=== PATIENT | female | born 1995 | race Caucasian/White ===

== ENCOUNTER → 2017-12-20 | Outpatient (REF) | payer OTHER | LOC: M SFHCLERA 11:26 | DX: J02.9 Acute pharyngitis, unspecified (principal) ==

== ENCOUNTER → 2017-12-27 | Outpatient (REF) | payer OTHER | LOC: M LAB REF 18:32 | DX: Z01.419 Encounter for gynecological examination (general) (routine) without abnormal findings (principal); Z12.4 Encounter for screening for malignant neoplasm of cervix ==

== ENCOUNTER → 2018-03-05 | Outpatient (REF) | payer OTHER | LOC: M SFHCLERA 13:32 | PROVIDERS: ATTEND Physician Assistant | DX: N39.0 Urinary tract infection, site not specified (principal) ==

== ENCOUNTER 2018-04-27 00:47 | Emergency (ER) | payer OTHER ==
[~2018-04-27] VITALS: Ht 165.1 cm; Wt 56.8 kg
[2018-04-27 00:47] VITALS: BP 154/97
== END 2018-04-27 02:29 | disposition left against medical advice (07) ==
LOC: M ED 00:47
DX: Z53.29 Procedure and treatment not carried out because of patient's decision for other reasons (principal)

== ENCOUNTER → 2018-08-21 | Outpatient (CLI) | payer OTHER ==
--- NOTE | 2018-08-22 02:54 | REP ---
Clinical: Anatomical evaluation. Comparison: None . Findings: Examination demonstrates a single live intrauterine in breech presentation. motion is identified by technologist. Placenta is noted anterior and grade zero without evidence for placenta previa or abruption. Amniotic fluid volume is normal. Cervix measures 3.9 cm in length and appears closed. No evidence for nuchal cord. Gestational age by LMP 19 weeks 2 days with RAE 01/13/2019 . Gestational age by current measurements 19 weeks 2-day with RAE 01/13/2019 . FHR equals 139 beats per minute. BPD 4.0 cm 18 weeks 1 day HC 16.4 cm 19 weeks 1 day AC 15.2 cm 20 weeks 3 days FL 2.9 cm 19 weeks 0 days HL 2.9 cm 19 weeks 3 days HC/AC ratio 1.08 Estimated weight 303 grams ( the 58 percentile). Anatomical assessment demonstrates normal structures including cranium, choroid plexus, cavum, cerebellum/posterior fossa, facial features, diaphragm, stomach, cord insertion/three-vessel cord, kidneys/bladder, spine, and extremities. Limited evaluation of the lungs and heart/ventricular outflow tracts. Impression: Single live intrauterine in breech presentation demonstrating appropriate interval growth. Anatomical limitations as described above may warrant reevaluation and follow-up. Electronically Signed by Jason Ramirez MD 08/22/2018 02:45 A
== END ==
LOC: M RAD 18:08
PROVIDERS: ATTEND Obstetrics & Gynecology
DX: Z34.82 Encounter for supervision of other normal pregnancy, second trimester (principal); Z3A.19 19 weeks gestation of pregnancy